=== PATIENT | male | born 2005 | race Caucasian/White ===

== ENCOUNTER 2024-12-13 08:21 | Emergency (ER) | payer MEDICAID ==
[~2024-12-13] VITALS: Ht 188 cm; Wt 138.8 kg
[2024-12-13 08:31] VITALS: TEMP 98.8
--- NOTE | 2024-12-13 11:26 | Physician Documentation ---
History of Present Illness ~ Chief Complaint: Abscess Stated Complaint: SORE THROAT Time Seen by MD: 09:35 Primary Medical Doctor: None Mode of Arrival: POV HPI Patient is seen today with complaints of a mass under his chin that patient states communicates with his throat and patient states it is affecting his swallowing and breathing. Patient states he has had this mass since he was 6 years old but recently in his gotten a little bigger and seems to be draining some pus. Patient denies any fevers or chills. Patient has no other concern or complaint at this time. Tetanus Within 5 Years: No Medication Reconciliation Allergies: Coded Allergies: No Known Allergies (Unverified , 12/13/24) Review of Systems Constitutional: Denies: chills, fever, weakness Eyes: Denies: pain, blurred vision ENT: Denies: ear pain, nose pain, throat pain, mouth pain Respiratory: Denies: cough, shortness of breath Cardiovascular: Denies: chest pain, palpitations Gastrointestinal: Denies: abdominal pain, nausea, vomiting Genitourinary: Denies: burning, dysuria Male Genitalia: Denies: penile discharge, testicular pain Neurological: Denies: headache, dizziness Musculoskeletal: Denies: pain, swelling Integumentary: Denies: rash, lesions Allergic/Immunologic: Denies: hives, itching Hematologic/Lymphatic: Denies: no symptoms reported Psychiatric: Denies: depression, anxiety Physical Exam Vital Signs: Temperature: 98.8, Source: Oral, Heart Rate: 96, Respiratory Rate: 16, BP: 133/88, Pulse Oximetry: 97, Weight: 138.800 Physical Exam General: Awake and Alert, no acute distress. HEENT: Conjunctiva pink, Sclera clear, Mucus Membranes moist. Neck: On exam the patient does have chronic appearing mass just smaller than a golf ball in the submental area and the right side of patient's neck/soft tissue of neck in the submental area. Area is not exquisitely tender to palpation. There is no purulent drainage currently. There is a small pea size area of fluctuance. There is no surrounding induration or erythema. Supple without masses and tenderness. Resp: Unlabored. Lungs clear to auscultation bilaterally. Heart: Regular Rate and rhythm, normal S1 and S2 without murmur, rub or gallop. Abdomen: Soft and non tender no organomegaly Extremities: No cyanosis,clubbing or edema. Skin: Warm and Dry. Procedures I & D Procedure : Procedure Note Procedure note: Patient refused lidocaine anesthesia local anesthesia today. Eleven blade was used to make a small incision in the superficial abscess in the submental area. Patient actually tolerated very well and denied any significant pain. A large amount of purulent drainage about the size of a ping-pong ball was expressed. Abscess was cleansed sterilely using iodine. Patient did have quarter-inch iodoform packing placed to pack the wound which patient tolerated well. Progress Results/Orders Results/Orders Orders - VERA FAYE PAC Ultrasound Head Neck (12/13/24 11:25) Ct Neck Soft Tissues (12/13/24 14:14) Saline Lock (12/13/24 ) Completed Orders - VERA FAYE PAC Ultrasound Head Neck (12/13/24 11:25) Ct Neck Soft Tissues (12/13/24 14:14) Cbc/Diff (12/13/24 14:14) CMP (12/13/24 14:14) Iohexol 300mg/Ml 100ml Inj. (Omnipaque-3 (12/13/24 15:01) Lidocaine 1% W/Epi 1:100,000 (Xylocaine (12/13/24 16:48) Vital Signs 12/13/24 12/13/24 12/13/24 12/13/24 08:31 10:31 11:55 14:36 Temp 98.8 Pulse 96 80 87 Resp 18 16 14 16 B/P (MAP) 133/88 117/74 (88) 129/65 (86) Pulse Ox 97 100 98 O2 Flow Rate 0 Laboratory Tests Test 12/13/24 14:36 White Blood Count 10.3 Red Blood Count 5.30 Hemoglobin 14.5 Hematocrit 43.5 Mean Corpuscular Volume 82.0 Mean Corpuscular Hemoglobin 27.4 Mean Corpuscular Hemoglobin Concent 33.4 Red Cell Distribution Width 13.6 Platelet Count 248 Mean Platelet Volume 8.1 Neutrophils (%) (Auto) 69.1 Lymphocytes (%) (Auto) 18.2 L Monocytes (%) (Auto) 10.6 Eosinophils (%) (Auto) 1.5 Basophils (%) (Auto) 0.6 Neutrophils # (Auto) 7.1 Lymphocytes # (Auto) 1.9 Monocytes # (Auto) 1.1 H Eosinophils # (Auto) 0.2 Basophils # (Auto) 0.1 CBC Comment Sodium Level 143 Potassium Level 4.0 Chloride Level 106 Carbon Dioxide Level 27.9 Anion Gap 9 Blood Urea Nitrogen 7 Creatinine 0.85 Estimated GFR/1.73 m2 > 90 BUN/Creatinine Ratio 8.2 L Glucose Level 87 Calcium Level 8.7 Total Bilirubin 0.9 Aspartate Amino Transf (AST/SGOT) 16 Alanine Aminotransferase (ALT/SGPT) 28 Alkaline Phosphatase 99 Total Protein 6.9 Albumin 3.5 Globulin 3.4 Albumin/Globulin Ratio 1.0 L Chemistry Comments EKG/XRAY/CT/US/VASC/MRI CT : Impression CAT SCAN Patient: HEIDI MAX Medical Record: [id number] [facility] : 2005, Age: 19 Sex: Male Location: ER Patient Status: [facility] ER Service Date/Time: 12/13/241413 Ordering Physician: VERA FAYE PAC Exam: CT NECK SOFT TISSUES EXAM: CT CT NECK SOFT TISSUES W/ IV CONTRAST INDICATION: mass neck EXAM DATE: 12/13/2024 03:25 PM COMPARISON: None TECHNIQUE: Multiple axial CT images of the neck were obtained using bone algorithm. Axial and coronal reformatting was done. Bone and soft tissue windows were reviewed. IV contrast was administered. Radiation Dose Information: CT Dose: CTDI volume is 16.13 mGy. Dose-length product is 445.69 mGy*cm Findings: Nasopharynx, oropharynx, hypopharynx, and larynx are normal in caliber without evidence of focal mass. Mucoperiosteal thickening of the ethmoid sinuses. Partial opacification of the right sphenoid sinus. Parotid, submandibular, and sublingual glands are within normal limits. The tong ue is unremarkable. Thyroid gland within normal limits. No evidence of superior mediastinal lymphadenopathy. Musculoskeletal structures grossly unremarkable with no evidence of acute osseous abnormality. 1.8 x 1.6 cm superficial fluid collection with peripheral rim enhancement anterior to the hyoid bone. Mildly prominent right cervical nodes. Impression: 1. Small superficial abscess anterior to the hyoid bone. 2. Reactive right cervical nodes. 3. Ethmoid and right sphenoid sinus disease. Electronically Signed by:IRMA VILLASEÑOR DO Date & Time: 12/13/241631 Dictated by: IRMA VILLASEÑOR DO Dictation date and time: 12/13/241631 Primary Care Provider: [facility] cc: VERA FAYE PAC ~ Ultrasound : Impression ULTRASOUND Patient: HEIDI MAX Medical Record: [id number] [facility] : 2005, Age: 19 Sex: Male Location: ER Patient Status: REG ER Service Date/Time: 12/13/241124 Ordering Physician: VERA FAYE PAC Exam: ULTRASOUND HEAD NECK CLINICAL HISTORY: 19 years old, Male; mass in neck under chin. TECHNIQUE: Grayscale sonographic imaging of the area of clinical concern in the submandibular soft tissues was performed, assisted by color doppler technique. COMPARISON: None FINDINGS: Corresponding to the area of clinical concern at the palpable and visible red lump along the caudal aspect of the mandible, there is a 2.1 x 1.6 cm hypoechoic mass with some vascular flow demonstrated. Mildly prominent lymph node adjacent to the mass measures 0.9 x 0.6 cm, with normal reniform shape and fatty hilum. IMPRESSION: 1. Mass corresponding to the area of clinical concern with some mild vascular flow demonstrated. Recommend CT soft tissue neck exam with contrast to further characterize. 2. Mildly prominent lymph node adjacent to the mass. Electronically Signed by:LUIS CARLOS VENTURA DO Date & Time: 12/13/24 1319 Dictated by: LUIS CARLOS VENTURA DO Dictation date and time: 12/13/241318 Primary Care Provider: NO PRIMARY CARE PROVIDER cc: VERA FAYE PAC ~ Medical Decision Making Findings Patient is seen today with complaints of a mass under his chin that patient states communicates with his throat and patient states it is affecting his swallowing and breathing. Patient states he has had this mass since he was 6 years old but recently in his gotten a little bigger and seems to be draining some pus. Patient denies any fevers or chills. Patient has no other concern or complaint at this time. Ultrasound of soft tissue of neck was done which did show mass but recommended CT scan of soft tissue neck which was also done which demonstrated an abscess. Abscess of the submental area on the right side was drained today using an 11 blade. Patient tolerated very well. Abscess was packed using quarter-inch iodoform packing which the patient also tolerated quite well. Patient will follow up in two days returning here to the ER or going to primary care for repacking of the wound. Prescription of Bactrim DS sent to patient's pharmacy to be taken twice a day for 10 days. First dose of Bactrim DS was administered by mouth here in the ED. shared decision-making utilized today. Patient will follow up with primary care provider as soon as possible. Departure Disposition: 01 HOME / SELF CARE / HOMELESS Impression: Primary Impression: Abscess Condition: Improved Discharge Instructions: Abscess, Care After, Incision and Drainage Additional Instructions: Ultrasound of soft tissue of neck was done which did show mass but recommended CT scan of soft tissue neck which was also done which demonstrated an abscess. Abscess of the submental area on the right side was drained today using an 11 blade. Patient tolerated very well. Abscess was packed using quarter-inch iodoform packing which the patient also tolerated quite well. Patient will follow up in two days returning here to the ER or going to primary care for repacking of the wound. Prescription of Bactrim DS sent to patient's pharmacy to be taken twice a day for 10 days. First dose of Bactrim DS was administered by mouth here in the ED. shared decision-making utilized today. Patient will follow up with primary care provider as soon as possible. Referrals: NO PRIMARY CARE PROVIDER (PCP) Prescriptions Sulfamethoxazole/Trimethoprim (Bactrim Ds Tablet) 800 Mg-160 Mg Tablet 1 TAB PO Q12H for 10 Days, #20 TAB Prov: VERA FAYE PAC 12/13/24 Signature Scribe Signature: No scribe Attestation: No scribe VERA FAYE PAC December 13, 2024 11:26
--- NOTE | 2024-12-13 13:22 | RADIOLOGY REPORT ---
CLINICAL HISTORY: 19 years old, Male; mass in neck under chin. TECHNIQUE: Grayscale sonographic imaging of the area of clinical concern in the submandibular soft t issues was performed, assisted by color doppler technique. COMPARISON: None FINDINGS: Corresponding to the area of clinical concern at the palpable and visible red lump along t he caudal aspect of the mandible, there is a 2.1 x 1.6 cm hypoechoic mass with some vascular flow dem onstrated. Mildly prominent lymph node adjacent to the mass measures 0.9 x 0.6 cm, with normal renifo rm shape and fatty hilum. IMPRESSION: 1. Mass corresponding to the area of clinical concern with some mild vascular flow demonstrated. Floyd mmend CT soft tissue neck exam with contrast to further characterize. 2. Mildly prominent lymph node adjacent to the mass.
[2024-12-13 14:36] VITALS: BP 129/65; PULSE 87; RESP 16; O2SAT 98
[2024-12-13 14:45] LABS: BASOPHILS # (AUTO) 0.1 X10'3 (0-0.2); BASOPHILS % (AUTO) 0.6 % (0-1); EOSINOPHILS # (AUTO) 0.2 X10'3 (0-0.9); EOSINOPHILS % (AUTO) 1.5 % (0-6); HEMATOCRIT 43.5 % (42.0-52.0); HEMOGLOBIN 14.5 g/dl (14.0-17.9); LYMPHOCYTES # (AUTO) 1.9 X10'3 (1.1-4.8); LYMPHOCYTES % (AUTO) 18.2 % (21-51); MEAN CORPUSCULAR HEMOGLOBIN 27.4 PG (27.0-31.0); MEAN CORPUSCULAR HGB CONC 33.4 g/dL (33.0-36.5); MEAN PLATELET VOLUME 8.1 FL (7.4-10.4); MONOCYTES # (AUTO) 1.1 X10'3 (0-0.9); MONOCYTES % (AUTO) 10.6 % (2-12); NEUTROPHILS # (AUTO) 7.1 X10'3 (1.8-7.7); NEUTROPHILS % (AUTO) 69.1 % (42-75); PLATELET COUNT 248 X10'3 (140-440); RED CELL DISTRIBUTION WIDTH 13.6 % (11.5-14.5); WHITE BLOOD COUNT 10.3 X10'3 (4.5-11.0)
[2024-12-13 14:57] LABS: ALANINE AMINOTRANSFERASE 28 U/L (12-78); ALBUMIN 3.5 G/DL (3.4-5.0); ALKALINE PHOSPHATASE 99 IU/L (46-116); ANION GAP 9 (8-16); ASPARTATE AMINO TRANSFERASE 16 U/L (10-37); BILIRUBIN,TOTAL 0.9 MG/DL (0.1-1.0); BLOOD UREA NITROGEN 7 MG/DL (7-18); BUN/CREATININE RATIO 8.2 (10.0-20.0); CALCIUM 8.7 MG/DL (8.5-10.1); CHLORIDE 106 MMOL/L (99-107); CREATININE 0.85 MG/DL (0.60-1.10); GLUCOSE 87 MG/DL (70-104); SODIUM 143 MMOL/L (135-145); TOTAL CARBON DIOXIDE 27.9 MMOL/L (24-32); TOTAL PROTEIN 6.9 G/DL (6.4-8.2); eCRCL 160 ML/MIN; eGFR > 90 ML/MIN
[2024-12-13] MEDS ORDERED: iohexol 300mg/ml 100ml inj. ONE (15:01)
--- NOTE | 2024-12-13 16:35 | RADIOLOGY REPORT ---
EXAM: CT CT NECK SOFT TISSUES W/ IV CONTRAST INDICATION: mass neck EXAM DATE: 12/13/2024 03:25 PM COMPARISON: None TECHNIQUE: Multiple axial CT images of the neck were obtained using bone algorithm. Axial and coronal reformatting was done. Bone and soft tissue windows were reviewed. IV contrast was administered. Radiation Dose Information: CT Dose: CTDI volume is 16.13 mGy. Dose-length product is 445.69 mGy*cm Findings: Nasopharynx, oropharynx, hypopharynx, and larynx are normal in caliber without evidence of focal mass . Mucoperiosteal thickening of the ethmoid sinuses. Partial opacification of the right sphenoid sinus. Parotid, submandibular, and sublingual glands are within normal limits. The tongue is unremarkable. Thyroid gland within normal limits. No evidence of superior mediastinal lymphadenopathy. Musculoskeletal structures grossly unremarkable with no evidence of acute osseous abnormality. 1.8 x 1.6 cm superficial fluid collection with peripheral rim enhancement anterior to the hyoid bone. Mildly prominent right cervical nodes. Impression: 1. Small superficial abscess anterior to the hyoid bone. 2. Reactive right cervical nodes. 3. Ethmoid and right sphenoid sinus disease.
[2024-12-13] MEDS: LIDOcaine 1% W/epiNEPHrine 1:100,000 20ml vial SQ STA (16:48)
[2024-12-13] MEDS ORDERED: SULF1TAB49 PO (18:03)
[2024-12-13] MEDS: sulfamethoxazole/trimethoprim DS (800/160mg) tablet PO STA (18:45)
== END 2024-12-13 19:00 | disposition home or self-care (01) ==
LOC: ER 08:22
DX: L02.01 Cutaneous abscess of face (principal); J02.9 Acute pharyngitis, unspecified; M54.2 Cervicalgia
CPT/HCPCS: 10060; 36415; 70491; 76881; 80053; 85025; 99285; A6407; Q9967; A6446; A6449

== ENCOUNTER 2024-12-15 14:44 | Emergency (ER) | payer MEDICAID ==
[~2024-12-15] VITALS: Ht 188 cm; Wt 134.9 kg
[~2024-12-15 14:44] MED LIST: SULF1TAB49 PO
[2024-12-15 14:49] VITALS: BP 145/73; PULSE 85; RESP 18; TEMP 97.8; O2SAT 97
--- NOTE | 2024-12-15 15:01 | Physician Documentation ---
History of Present Illness ~ Chief Complaint: Wound Re-Check Stated Complaint: WOUND CARE Time Seen by MD: 14:58 Primary Medical Doctor: None HPI This is a 19-year-old male who presents for a wound recheck of a wound that was packed on his submandibular area, patient additionally reports several days of sore throat. Patient reports no fever, chills, or other systemic symptoms. Patient reports no other acute symptoms or concerns. Tetanus within 5 years?: No Medication Reconciliation Allergies: Coded Allergies: No Known Allergies (Unverified , 12/15/24) Scheduled Ibuprofen* (Motrin*), 1 TAB PO Q8H Sulfamethoxazole/Trimethoprim (Bactrim Ds Tablet), 1 TAB PO Q12H Past Medical History Past Medical History: No Pertinent History Review of Systems ROS Wound to submandibular area and sore throat as stated above in the HPI, otherwi se all systems are reviewed and negative. Physical Exam Vital Signs: Temperature: 97.8, Source: Temporal, Heart Rate: 85, Respiratory Rate: 18, BP: 145/73, Pulse Oximetry: 97, Weight: 134.870 Physical Exam VITALS: Reviewed and as above. GENERAL: Alert, nontoxic appearing, no apparent distress. HEENT: 3+ tonsils erythematous without exudates or patches, uvula midline RESPIRATORY: No increased work of breathing, no respiratory distress, speaking in full clear sentences Progress Results/Orders Results/Orders Orders - OSVALDO PALACIO Cult Throat + R/O Beta Strep (12/15/24 16:55) Completed Orders - OSVALDO PALACIO Dexamethasone Inj (Decadron 10mg/Ml Inj) (12/15/24 15:32) Sulfamethox/Trimetho. Ds Tab (Septra Ds (12/15/24 15:35) Strep A Rapid (12/15/24 15:32) Vital Signs 12/15/24 14:49 Temp 97.8 Pulse 85 Resp 18 B/P (MAP) 145/73 Pulse Ox 97 Laboratory Tests Test 12/15/24 16:19 Group A Streptococcus Rapid Negative Medical Decision Making Findings This 19-year-old male presented requesting wound recheck of an abscess that was incised and drained approximately two days prior, patient additionally reported a sore throat that he did not have addressed it was last ED visit. The incised abscess appears to have decreased in size significantly in his no longer draining, at this time repacking the abscess is not indicated as the cavity appears to closed. Patient to continue course of antibiotics. Significantly on physical exam patient did have 3+ erythematous tonsils without exudates though with shared decision-making a strep swab was obtained though was negative, sore throat is most likely of viral etiology though as patient does have some chronic sinus congestion with postnasal drip this could be of allergic origin as well. Patient was medicated with a dose of Decadron for sore throat. I have low clinical suspicion for peritonsillar abscess, uvulitis, or deep tissue space infection of the neck due to no muffled voice or drooling, uvula midline. Physical exam is otherwise benign, patient is non-toxic and well-appearing, afebrile, hemodynamically stable, non-tachypneic, non-tachycardic, and room air SpO2 of 97% interpreted as normal and adequate. Patient was appropriate for outpatient follow up. I discussed with the patient home care instructions and return to care precautions which he verbalized understanding of. Differential Dx:Considerations: Include: Abscess, Cellulitis, Dressing change, Other (Strep pharyngitis, peritonsillar abscess, retropharyngeal abscess, sinusitis, Mehul's angina) Departure Disposition: 01 HOME / SELF CARE / HOMELESS Impression: Primary Impression: Abscess Additional Impressions: Wound check, abscess Sore throat Condition: Improved Discharge Instructions: Abscess, Care After, Sore Throat, [id number] Additional Instructions: Keep the area clean dry and covered, continue to take your previously prescribed antibiotics. Please follow up with your primary care provider or the [facility] in the next few days for wound recheck. Please use ibuprofen and or Tylenol as needed for sore throat pain as directed by the [id number] packaging, warm salt gargles may help with the sore throat pain. Please return to the emergency department for any new or worsening concerning symptoms. Referrals: NO PRIMARY CARE PROVIDER (PCP) Prescriptions Ibuprofen* (Motrin*) 400 Mg Tablet 1 TAB PO Q8H for pain or fever for 20 Days, #60 TAB Prov: OSVALDO PALACIO [facility] 12/15/24 Education Educated: Patient Educated regarding: diagnosis, treatment, prognosis, need for follow up Signature Scribe Signature: No scribe Attestation: The note accurately reflects work and decisions made by me.HAO Casper 12/16/24 02:41 OSVALDO PALACIO December 15, 2024 15:01
[2024-12-15] MEDS: sulfamethoxazole/trimethoprim DS (800/160mg) tablet PO ONE (16:16)
[2024-12-15] MEDS: dexamethasone sod phosphate 10mg/ml inj PO STA (16:16)
[2024-12-15 16:55] LABS: STREP A SCREEN NEGATIVE (Neg)
[2024-12-15] MEDS ORDERED: IBUP-1984 PO (17:18)
== END 2024-12-15 17:32 | disposition home or self-care (01) ==
LOC: ER 14:44
DX: J39.1 Other abscess of pharynx (principal); Z79.899 Other long term (current) drug therapy
CPT/HCPCS: 87081; 87880; 99283; A6266; J1100

== ENCOUNTER 2025-01-21 19:47 | Emergency (ER) | payer MEDICAID ==
[~2025-01-21] VITALS: Ht 188 cm; Wt 112.0 kg
[~2025-01-21 19:47] MED LIST changes: +DIPH25TA62 PO; +FAMO-129 PO; -SULF1TAB49 PO; +TRIA15CR61 TOP
[2025-01-21] MEDS: ondansetron 4mg rapidly disintigrating tab PO ONE (20:07)
[2025-01-21] MEDS: acetaminophen 325mg tablet PO ONE (20:08)
[2025-01-21 20:15] LABS: BASOPHILS % (AUTO) 0.2 % (0-1); EOSINOPHILS % (AUTO) 0 % (0-6); HEMATOCRIT 42.8 % (42.0-52.0); HEMOGLOBIN 14.3 g/dl (14.0-17.9); LYMPHOCYTES # (AUTO) 0.7 X10'3 (1.1-4.8); LYMPHOCYTES % (AUTO) 6.2 % (21-51); MEAN CORPUSCULAR HEMOGLOBIN 27.2 PG (27.0-31.0); MEAN CORPUSCULAR HGB CONC 33.3 g/dL (33.0-36.5); MEAN CORPUSCULAR VOLUME 81.6 FL (78-98); MEAN PLATELET VOLUME 8.1 FL (7.4-10.4); MONOCYTES # (AUTO) 0.9 X10'3 (0-0.9); MONOCYTES % (AUTO) 8.1 % (2-12); NEUTROPHILS # (AUTO) 9.8 X10'3 (1.8-7.7); NEUTROPHILS % (AUTO) 85.5 % (42-75); PLATELET COUNT 244 X10'3 (140-440); RED BLOOD COUNT 5.24 X10'6 (4.70-6.10); RED CELL DISTRIBUTION WIDTH 14.6 % (11.5-14.5); WHITE BLOOD COUNT 11.5 X10'3 (4.5-11.0)
[2025-01-21 20:27] LABS: ALANINE AMINOTRANSFERASE 26 U/L (12-78); ALBUMIN 3.8 G/DL (3.4-5.0); ALKALINE PHOSPHATASE 101 IU/L (46-116); ANION GAP 11 (8-16); ASPARTATE AMINO TRANSFERASE 17 U/L (10-37); BILIRUBIN,TOTAL 0.9 MG/DL (0.1-1.0); BLOOD UREA NITROGEN 11 MG/DL (7-18); BUN/CREATININE RATIO 8.6 (10.0-20.0); CALCIUM 8.3 MG/DL (8.5-10.1); CHLORIDE 98 MMOL/L (99-107); CREATININE 1.28 MG/DL (0.60-1.10); GLUCOSE 92 MG/DL (70-104); POTASSIUM 3.2 MMOL/L (3.5-5.1); SODIUM 133 MMOL/L (135-145); TOTAL CARBON DIOXIDE 24.1 MMOL/L (24-32); TOTAL PROTEIN 7.6 G/DL (6.4-8.2); eCRCL 106 ML/MIN; eGFR 71 ML/MIN
[2025-01-21 21:05] VITALS: TEMP 100.3
--- NOTE | 2025-01-21 22:54 | Physician Documentation ---
History of Present Illness ~ Chief Complaint: Flu Symptoms Stated Complaint: FLU SYMPTOMS Time Seen by MD: 22:01 Primary Medical Doctor: None Mode of Arrival: EMS HPI This is a 19-year-old male who presents by EMS for one day of body aches, sore throat, cough, fever, and nausea and vomiting without diarrhea onset this morning, patient reports he has been feeling ill all day and vomiting multiple times throughout the day. Patient reports he had a very poor appetite yesterday and did not eat for the day and has not eaten today due to the vomiting. Medication Reconciliation Allergies: Coded Allergies: No Known Allergies (Unverified , 12/15/24) Scheduled Diphenhydramine HCl (Benadryl Allergy), 2 TAB PO HS Famotidine (Pepcid), 1 TAB PO Q12H Triamcinolone Acetonide 0.5% Crm* (Kenalog 0.5% Crm*), 1 APPLIC TOP Q12H Scheduled PRN ONDANSETRON ODT 4mg tablet (Ondansetron Odt), 1 TAB PO Q6H PRN PRN for nausea/vomiting Past Medical History Past Medical History: No Pertinent History Review of Systems ROS Sore throat, cough, fever, body aches, vomiting as stated above in the HPI, otherwise all systems are reviewed and negative. Physical Exam Vital Signs: Temperature: 100.3, Source: Oral, Heart Rate: 95, Respiratory Rate: 14, BP: 127/56, Pulse Oximetry: 98, Weight: 112.000 Oxygen Flow Rate: 0 Physical Exam VITALS: Reviewed and as above. GENERAL: Alert and oriented x4, nontoxic appearing, no apparent distress. HEENT: PERRLA, EOMI, 4+ tonsils with erythema and patchy exudates, anterior cervical lymphadenopathy RESPIRATORY: No increased work of breathing, no respiratory distress, speaking in full clear sentences, clear lung sounds in all hanson CV: Regular rate and rhythm no murmur BACK: No CVA tenderness GI: Soft, nondistended, no focal tenderness, no rebound, no guarding, bowel sounds present MUSCULOSKELETAL: SKIN: Warm and dry no rash Progress Results/Orders Results/Orders Orders - OSVALDO PALACIO TIE PRESSER Chest,Two Views (01/21/25 22:24) Covid19 Binax Poc Result Entry (01/21/25 22:44) Po Challenge (01/21/25 ) Cult Throat + R/O Beta Strep (01/22/25 00:39) Completed Orders - OSVALDO PALACIO TIE PRESSER Chest,Two Views (01/21/25 22:24) Ketorolac Trometh 15mg/Ml Vial (Toradol (01/21/25 22:45) Strep A Rapid (01/21/25 22:44) Medications Received in ER Medications (Trade) Dose Ordered Sig/Kendal Route PRN Reason Start Time Stop Time Status Last Admin Dose Admin (Zofran ODT tablet) 4 mg ONCE ONCE PO 01/21/25 20:00 01/21/25 20:01 DC 01/21/25 20:07 4 MG (Tylenol tablet) 650 mg ONCE ONCE PO 01/21/25 20:00 01/21/25 20:01 DC 01/21/25 20:08 650 MG (Toradol injection) 15 mg ONCE ONCE IM 01/21/25 22:45 01/21/25 22:48 DC 01/22/25 00:01 15 MG Vital Signs 01/21/25 01/21/25 01/21/25 01/22/25 19:50 21:05 22:09 00:01 Temp 100.2 100.3 Pulse 105 95 Resp 16 14 14 14 B/P (MAP) 126/68 127/56 (79) Pulse Ox 98 98 O2 Flow Rate 0 01/22/25 01:12 Pulse 85 Resp 15 B/P (MAP) 105/45 (65) Pulse Ox 99 Laboratory Tests Test 01/21/25 20:04 01/22/25 00:05 01/22/25 00:15 White Blood Count 11.5 H Red Blood Count 5.24 Hemoglobin 14.3 Hematocrit 42.8 Mean Corpuscular Volume 81.6 Mean Corpuscular Hemoglobin 27.2 Mean Corpuscular Hemoglobin Concent 33.3 Red Cell Distribution Width 14.6 H Platelet Count 244 Mean Platelet Volume 8.1 Neutrophils (%) (Auto) 85.5 H Lymphocytes (%) (Auto) 6.2 L Monocytes (%) (Auto) 8.1 Eosinophils (%) (Auto) 0 Basophils (%) (Auto) 0.2 Neutrophils # (Auto) 9.8 H Lymphocytes # (Auto) 0.7 L Monocytes # (Auto) 0.9 Eosinophils # (Auto) 0.0 Basophils # (Auto) 0.0 CBC Comment Sodium Level 133 L Potassium Level 3.2 L Chloride Level 98 L Carbon Dioxide Level 24.1 Anion Gap 11 Blood Urea Nitrogen 11 Creatinine 1.28 H Estimated GFR/1.73 m2 71 BUN/Creatinine Ratio 8.6 L Glucose Level 92 Calcium Level 8.3 L Total Bilirubin 0.9 Aspartate Amino Transf (AST/SGOT) 17 Alanine Aminotransferase (ALT/SGPT) 26 Alkaline Phosphatase 101 Total Protein 7.6 Albumin 3.8 Globulin 3.8 Albumin/Globulin Ratio 1.0 L Chemistry Comments SARS-CoV-2 Antigen (Rapid) Negative Group A Streptococcus Rapid Negative EKG/XRAY/CT/US/VASC/MRI Chest X-Ray : Additional Comments CHEST TWO VIEWS REASON FOR EXAM: Cough and Fever COMPARISON: None TECHNIQUE: PA and lateral views of the chest are obtained. FINDINGS: The cardiomediastinal silhouette is within normal limits for size. There is no focal airspace disease. There is no pleural effusion. No acute osseous abnormality is identified. IMPRESSION: No radiographic evidence of acute cardiopulmonary process. Electronically Signed by:CLAUDIA KEY MD Date & Time: 01/21/25 2637 Dictated by: CLAUDIA KEY MD Dictation date and time: 01/21/25 417 I have reviewed and agree with the radiology report. I have reviewed and interpreted the imaging as: No focal consolidation or pneumothorax Medical Decision Making Findings This is a 19-year-old male who presented with one day of generalized body aches, cough, fever, sore throat and nausea and vomiting consistent with viral illness. Physical exam did demonstrate swollen erythematous tonsils with patches and strep swab obtained though negative, remainder of physical exam was benign without evidence of hypoxia and reassuringly patient had clear lung sounds in all hanson, a chest x-ray was obtained that did not demonstrate evidence of focal consolidation to suggest pneumonia. Patient was medicated with Zofran for vomiting which patient reported significant improvement in nausea and vomiting symptoms. I personally obtained patient's temperature with a reading of 99.0 indicating patient has had decrease in fever after medication with Tylenol, patient is tolerating oral intake and sleeping comfortably in ED room. Patient is otherwise well-appearing and appropriate for discharge. Patient provided home care instructions, return to care precautions, and follow up instructions. Differential Dx:Considerations: Include: Influenza, Meningitis, Pneumonia, Pneumonitis, Pyelonephritis, Respiratory failure, Sepsis, Viral Syndrome, Other (Strep pharyngitis, mononucleosis, viral pharyngitis, COVID, ) Departure Disposition: HOME / SELF CARE / HOMELESS Impression: Primary Impression: Viral infection Condition: Improved Discharge Instructions: Viral Illness Additional Instructions: I suspect your symptoms are from a viral illness, please use the prescribed Zofran as needed for nausea and vomiting to help you maintain good oral intake, stay well hydrated drinking plenty of non caffeinated non alcoholic fluids. Wash your hands well and cover your cough to avoid spreading illness. You may use ibuprofen and or Tylenol as needed for pain and fever as directed by [id number] packaging. Please follow up with your primary care provider in the next few days. Please return to the emergency department for any new or worsening concerning symptoms including but not limited to difficulty breathing, fever over 100.4 that does not lower with ibuprofen or Tylenol or if you are emily ble to keep food or drink down. Referrals: NO PRIMARY CARE PROVIDER (PCP) Prescriptions ONDANSETRON ODT 4mg tablet (ONDANSETRON ODT) 4 Mg Tab.rapdis 1 TAB PO Q6H PRN PRN for nausea/vomiting for 4 Days, #16 TAB 0 Refills Prov: OSVALDO PALACIO 01/21/25 Education Educated: Patient Educated regarding: diagnosis, treatment, prognosis, need for follow up Signature Scribe Signature: No scribe Attestation: The note accurately reflects work and decisions made by me.HAO Casper 01/22/25 03:20 OSVALDO PALACIO Jan 21, 2025 22:53
[2025-01-21] MEDS ORDERED: ONDA-243 PO (23:27)
--- NOTE | 2025-01-21 23:31 | RADIOLOGY REPORT ---
CHEST TWO VIEWS REASON FOR EXAM: Cough and Fever COMPARISON: None TECHNIQUE: PA and lateral views of the chest are obtained. FINDINGS: The cardiomediastinal silhouette is within normal limits for size. There is no focal airsp corine disease. There is no pleural effusion. No acute osseous abnormality is identified. IMPRESSION: No radiographic evidence of acute cardiopulmonary process.
[2025-01-22] MEDS: ketorolac trometh 15mg/ml vial 15 MG/ML ML IM ONE (00:01)
[2025-01-22 00:39] LABS: STREP A SCREEN NEGATIVE (Neg)
[2025-01-22 01:12] VITALS: BP 105/45; PULSE 85; RESP 15; O2SAT 99
== END 2025-01-22 01:25 | disposition home or self-care (01) ==
LOC: ER 19:48
DX: B34.9 Viral infection, unspecified (principal); Z79.899 Other long term (current) drug therapy; Z20.822 Contact with and (suspected) exposure to COVID-19
CPT/HCPCS: 36415; 71046; 80053; 85025; 87081; 87811; 87880; 96372; 99284; J1885